=== PATIENT | female | born 1960 | race Caucasian/White ===

== ENCOUNTER → 2020-07-13 | Outpatient (CLI) | payer OTHER ==
[~2020-07-13] MED LIST: ASA81BEC PO; B COMPLEX1 EACH PO; BLACK COHOSH540 MG PO; CALCIUM MAGNES1 EAC2 PO; CLIMARA1 EAC3 PO; COCONUT OIL100 GM PO; CRANBERRY500 M2 PO; FISH OIL 1,0001 EAC9 PO; PROGESTERONE200 MG PO; PROTONIX40 M2 PO; SUPER THERAVIT1 EACH PO; SYNTHROID200 MCG PO; VITAMIN C500 M2 PO; VITAMIN D3100 MCG PO
== END ==
LOC: SJCVCIMAG 06-28 07:46
PROVIDERS: ATTEND Internal Medicine
DX: I07.1 Rheumatic tricuspid insufficiency (principal); R00.0 Tachycardia, unspecified; Z79.82 Long term (current) use of aspirin; Z87.891 Personal history of nicotine dependence

== ENCOUNTER → 2020-07-18 | Outpatient (CLI) | payer OTHER ==
[~2020-07-18] VITALS: Ht 177.8 cm; Wt 112.9 kg
[2020-07-18 10:36] VITALS: BP 130/75
[2020-07-18 10:49] LABS: HEMATOCRIT 37.5 % (37.0-47.0); HEMOGLOBIN 11.8 gm/dL (12.0-15.0); MCH 26.4 pg (26.0-34.0); MCHC 31.5 g/dL (28.0-37.0); MCV 83.6 fL (80.0-100.0); RBC 4.49 mil/uL (4.20-5.00); WBC 6.8 thou/uL (4.0-11.0)
[2020-07-18 10:56] LABS: POTASSIUM 3.6 mmol/L (3.5-5.1)
--- NOTE | 2020-07-18 12:21 | EKG ---
[facility] [place] [address] ELECTROCARDIOGRAM REPORT Name: HENRRY INGRAM Room #: REG [facility].#: [id number] Admission: 07/18/20 Attend Phys: Harish Huang Discharge: Date of : 64 Report #: [id number] THIS REPORT FOR: cc: [facility] - Clinic physician unknown [facility] - Clinic physician unknown Cory Benites MD [facility] THIS REPORT FOR: //name// [facility] Test Date: 2020-07-18 Test Time: 11:30:09 Pat Name: HENRRY INGRAM Department: Room: Gender: F Senior Behavioral Scientist: PATRICIA : 1960 Requested By: Mike Huang Order Number: [id number] MD: Cory Benites Measurements Intervals [place] Rate: 77 P: 62 KS: 166 QRS: -22 QRSD: 90 T: -2 QT: 371 QTc: 420 Interpretive Statements Sinus rhythm Borderline left axis deviation Abnormal R-wave progression, late transition Borderline T abnormalities, inferior leads Baseline wander in lead(s) V4,V5 No previous ECG available for comparison Electronically Signed On 07-18-2020 12:21:08 CDT by Cory Benites [email or web address] <ELECTRONICALLY SIGNED> By: Cory Benites MD, [facility] 07/18/20 1221 1130 1130 Cory Benites MD, [facility] /EPI
--- NOTE | 2020-07-24 15:27 | CATHLAB ---
[facility] [address] [place] [address] INVASIVE PROCEDURE REPORT Name: HENRRY INGRAM Room #: REG [facility] Erika#: [id number] Admission: 07/18/20 Attend Phys: Harish Huang Discharge: Date of : 64 Report #: [id number] THIS REPORT FOR: cc: [facility] - Clinic physician unknown [facility] - Clinic physician unknown Harish Huang MD ~ APPROVED REPORT Study performed: 07/18/2020 10:26:47 Patient Details Patient Status: Out-Patient Room #: The patient is a 60 year-old female Event Personnel Harish Huang Braille Proofreader, Anshul [place] RN RN, Arturo Lopez RTR Pawel Beckham Sherra RTR Monitor Procedures Performed Art Access - R femoral artery* Left Heart Cath w/or w/o Coronaries [id number] [facility] [address] Initial Mod Sed Same Phys/QHP Gr5y 735146 90550 Mod Sed Same Phys/QHP Ea 550563 Hemostasis with Manual pressure, supervision of conscious sedation Indication Positive stress test, Chest pain Procedure Narrative The Right Groin^ was infiltrated with 1% Lidocaine subcutaneous anesthesia. A PINNACLE 4FR Sheath #[id number] sheath was inserted into the RFA^. Coronary angiography was performed using coronary diagnostic catheters. The right coronary system was accessed and visualized with a JR4 catheter. The left coronary system was accessed and visualized with a JL4 catheter. The left ventricle was accessed and visualized with a PIGTAIL catheter. Hemostasis was obtained with manual pressure following sheath removal without any complications. The patient tolerated the procedure well and there were no complications associated with the procedure. There was no hematoma. Intraoperative Conscious Sedation Sedation start time: 1231 Case end Time: 1304 [facility] [address] [place] [address] INVASIVE PROCEDURE REPORT Name: HENRRY INGRAM Room #: REG [facility]#: [id number] Admission: 07/18/20 Attend Phys: Harish Navarro Discharge: Date of : 64 Report #: [id number] Versed 4 mg Fluoro Time: 2.70 minutes Dose: DAP 3073.00 cGycm2 774 mGy Contrast Type and Amount: Omnipaque 50 ml Coronary Angiography The patient's coronary anatomy is right dominant. Diagnostic Cath Left Main Left main is of normal origin caliber bifurcates left into descending left circumflex. No significant lesion identified LAD Moderate to large caliber type III vessel which courses in the interventricular sulcus giving rise to a moderate to large caliber diagonal branch. The vessel continues on any sulcus towards the apex giving rise to a second smaller diagonal branch as well as septal branches as it courses tapering with mild irregularities towards the apex Diagonal 1 Moderate to large caliber bifurcating vessel coursing on the anterolateral wall without significant high-grade lesions and only luminal irregularities noted Diagonal 2 Small caliber vessel without significant high-grade lesion Circumflex Moderate to large caliber nondominant vessel coursing in the AV groove giving rise to a small insignificant caliber first marginal branch. And then continues posteriorly giving rise to a moderate caliber bifurcating lateral wall marginal branch prior to terminating is a small posterior wall branch. No high-grade lesions are noted. OM1 Small insignificant caliber vessel without high-grade lesion OM2 Moderate caliber bifurcating vessel with tortuous in its course but no significant plaquing is identified Right Coronary Large-caliber vessel normal origin courses in the AV groove to the acute margin. There is mild plaquing at the acute margin which is not flow-limiting as the RV marginal branch originates. The vessel continues posteriorly to the crux of the heart gives us a posterior descending artery as well as several smaller caliber posterior wall branches. R PDA Moderate caliber vessel without high-grade lesions Left Ventriculography Left Ventriculography was not performed. Hemodynamics [facility] [address] [place] [address] INVASIVE PROCEDURE REPORT Name: HENRRY INGRAM Melva Room #: REG [facility]#: [id number] Admission: 07/18/20 Attend Phys: Harish Navarro Discharge: Date of : 64 Report #: [id number] The aortic pressure is 111/64 mmHg with a mean of 65 mmHg. The left ventricular pressure is 121/4 mmHg with a mean of mmHg. The left ventricular end diastolic pressure is 18 mmHg. Conclusion 1. Essentially normal coronary arteries with minimal nonobstructive plaquing 2. Normal hemodynamics Recommendations Cardiac Risk Reduction Program Medical Therapy <ELECTRONICALLY SIGNED> By: Harish Huang MD 07/24/20 1527 152 152 Harish Huang MD /INF
== END | disposition home or self-care (01) ==
LOC: CATH 06:21
PROVIDERS: ATTEND Internal Medicine
DX: R07.9 Chest pain, unspecified (principal); R94.39 Abnormal result of other cardiovascular function study; I25.10 Atherosclerotic heart disease of native coronary artery without angina pectoris; E03.9 Hypothyroidism, unspecified; E78.5 Hyperlipidemia, unspecified; Z98.890 Other specified postprocedural states; Z79.899 Other long term (current) drug therapy; Z90.49 Acquired absence of other specified parts of digestive tract; Z79.82 Long term (current) use of aspirin